=== PATIENT | female | born 1970 | race Caucasian/White ===

== ENCOUNTER 2020-07-31 09:30 | Day surgery (SDC) | payer OTHER, SELFPAY ==
[2020-07-29 11:52] VITALS: BMI 32.3
--- NOTE | 2020-07-30 12:59 | P.CONAN_ITS ---
Documented by User: Nena Barrientos 07/30/20 13:00 HPI - Anesthesia Eval Consult details Narrative: 49yo F for Foot Arthroplasty,first MPJ implant PCP cleared [facility] Past Medical History Medical History Anxiety Anxious depression Fibromyalgia Insomnia Migraines Sleep apnea Social History Social History Smoking Status: Never smoker Use of substances other than those prescribed or required for medical reasons: No Advance Directives: No Advance Directives Information Provided: No Advance Directives on File: No Recently lost weight without trying: No Meds Allergies Allergy/AdvReac Type Severity Reaction Status Date / Time Penicillins Allergy Unknown Verified 07/29/20 11:50 enviromental Allergy Unknown Uncoded 07/29/20 11:50 Home Medications Medication Instructions Recorded Confirmed Type acetaminophen [Tylenol Extra 500 mg PO Q6H PRN 07/29/20 07/29/20 History Strength] amitriptyline 50 mg PO BEDTIME 07/29/20 07/29/20 History fluoxetine 20 mg PO DAILY 07/29/20 07/29/20 History Exam Exam Date and Time: July 30, 2020 1259 Height,Weight and Vital Signs: Height 5 ft 8 in Weight 96.3 kg Assessment and Plan Assessment Anesthesia Assessment: Chart Reviewed Documented by User: Ivana Shine 07/31/20 07:20 [facility] Past Medical History Medical History Anxiety Anxious depression Fibromyalgia Insomnia Migraines Sleep apnea Social History Social History Smoking Status: Never smoker Use of substances other than those prescribed or required for medical reasons: No Advance Directives: No Advance Directives Information Provided: No Advance Directives on File: No Recently lost weight without trying: No Meds Allergies Allergy/AdvReac Type Severity Reaction Status Date / Time Penicillins Allergy Unknown Verified 07/29/20 11:50 enviromental Allergy Unknown Uncoded 07/29/20 11:50 Home Medications Medication Instructions Recorded Confirmed Type acetaminophen [Tylenol Extra 500 mg PO Q6H PRN 07/29/20 07/29/20 History Strength] amitriptyline 50 mg PO BEDTIME 07/29/20 07/29/20 History fluoxetine 20 mg PO DAILY 07/29/20 07/29/20 History Exam Airway Mallampati Class: II TM Dist: >3cm Neck ROM: Full Heart: RRR Lungs: CTA
--- NOTE | 2020-07-30 15:52 | HP_ITS ---
DATE OF SERVICE: 07/31/2020 She is scheduled for a right great toe arthroplasty with Arthrosurface implant. PREOPERATIVE DIAGNOSES: Osteoarthritis right great toe, hallux limitus. PAST MEDICAL HISTORY: Joint implants, anxiety, fibromyalgia. CURRENT MEDICATIONS: Fluoxetine. SURGICAL HISTORY: Knee surgery, heart surgery, ablation in 2010. FAMILY HISTORY: Significant for diabetes, heart disease, hypertension. SOCIAL HISTORY: The patient is a nonsmoker. ALLERGIES: PENICILLIN AND BACTRIM. HOSPITALIZATIONS: Denies. REVIEW OF SYSTEMS: Denies. HISTORY OF PRESENT ILLNESS: This is a 49 yo female who presents to my office complaining of aching, tenderness, and stiffness to the right great toe joint for several years. It has been gradually getting progressively worse. It is painful with any pressure standing or walking. The patient has tried multiple conservative therapies including rest, change in shoes, cortisone injections, intervals, bracing straps and wraps to her right foot without any success. PHYSICAL EXAMINATION: GENERAL: Reveals a pleasant alert well-nourished, well-developed, well-hydrated individual who presents with a proper attention to hygiene and body habitus. She is oriented x3. NEUROLOGICAL EXAM: Reveals intact sensorium. Pain sensation is normal. Vibratory sensation is intact. Pinprick sensation is normal. The patient denies any anesthesia, burning, paresthesias or tingling bilaterally. VASCULAR EXAM: DP and PT pulses are 3/4 bilaterally. Capillary refill is immediate to all digits. Skin temperature, elasticity, and turgor is normal bilaterally. Pigmentation is normal. There is no edema. ORTHOPEDIC EXAM: Reveals muscle strength is 5/5 to all muscle groups in a symmetrical fashion. There is a dorsally, medially prominent 1st metatarsophalangeal joint with pain on palpation. Range of motion of the 1st MPJ is guarded due to discomfort with limited 1st MPJ. Dorsal range of motion, limited, plantar range of motion and pain associated with range of motion throughout range of motion testing of the right foot. DIAGNOSTIC DATA: X-ray exam reveals asymmetrical narrowing of the 1st metatarsophalangeal joint space. There is an exostosis located at the dorsal aspect of the 1st metatarsal head. PLAN: The patient is scheduled for surgery at [facility]. Surgery was discussed in detail with the patient including risks of surgery and not having surgery, the surgical complications, the anesthesia and the usual postoperative course. No guarantees were given. We discussed the patient complications such as but not limited to delayed or nonhealing, excessive scarring, excessive swelling, failure of the procedure, floppy toe infection, nonunion, numbness, chronic pain, recurrence, shortened toe, joint stiffness, failure of the procedure and loss of toe, foot, life, or limb. Alternatives of procedure were also discussed including conservative care. The patient would like to proceed with surgical treatment. The patient will obtain preoperative labs as well as medical clearance for surgery and anesthesia from her primary care physician. The patient will be made aware to stop any and all blood thinners 1 week prior to surgery. The patient is made aware that driving may not be allowed during a portion of the postoperative period. The patient is also made aware not to utilize any smoking tobacco products. Discussed surgical options including a cheilectomy and joint replacement as well as a joint fusion. Discussed risks and benefits of the above-mentioned procedures in detail, and their recovery times. Discussed with the patient that given her x-rays, we will make it intra op decision between a cheilectomy and a joint replacement. The patient consented for both procedures pending damage to the joint cartilage. The mass that was checked prior to writing of the narcotic pain medication. The patient was given Percocet 5/325 mg for breakthrough pain. The patient can also stagger taking Motrin and Tylenol as needed for pain. The patient can be weightbearing as tolerated to the right foot and a surgical shoe postoperatively. PERFECTO Renteria / [id number] ZULAY
[2020-07-31] VITALS (7 sets, daily range): BP systolic 126–142; BP diastolic 85–95; PULSE 97–120; RESP 13–21; TEMP 36.3–36.7; O2SAT 97–100
--- NOTE | 2020-07-31 07:20 | HO.ANESPROP2 ---
[facility] Past Medical History Medical History Anxiety Anxious depression Fibromyalgia Insomnia Migraines Sleep apnea Social History Social History Smoking Status: Never smoker Use of substances other than those prescribed or required for medical reasons: No Advance Directives: No Advance Directives Information Provided: No Advance Directives on File: No Recently lost weight without trying: No Meds Allergies Allergy/AdvReac Type Severity Reaction Status Date / Time Penicillins Allergy Unknown Verified 07/29/20 11:50 enviromental Allergy Unknown Uncoded 07/29/20 11:50 Home Medications Medication Instructions Recorded Confirmed Type acetaminophen [Tylenol Extra 500 mg PO Q6H PRN 07/29/20 07/29/20 History Strength] amitriptyline 50 mg PO BEDTIME 07/29/20 07/29/20 History fluoxetine 20 mg PO DAILY 07/29/20 07/29/20 History Exam Exam Date and Time: July 31, 2020 0720 Height,Weight and Vital Signs: Height 5 ft 8 in Weight 96.3 kg Assessment and Plan Assessment Anesthesia Assessment: Anesthesia Plan Discussed and Chart Reviewed Final Anesthetic Review NPO: Yes ASA Class: II Final Preanesthetic Review: No Changes in Pt Med Stat, Meds/Allgs Chart Reviewed, Consent Obtained/Reviewed and Anes Risks/Benef Reviewed Patient Risk: Low Procedure Risk: Low Anesthetic Plan Anesthetic Plan: MAC: Disposition: Standard PACU
--- NOTE | 2020-07-31 10:21 | PC.NURSE ---
DOCUMENTED ON A DISCONTINUED VANCO ORDER. DOCUMENTATION UNDONE AND CORRECTLY DOCUMENTED ON TODAY'S VANCO
[2020-07-31] MEDS: Lactated Ringers 1,000 ML 100 ML IVCONT (10:25)
--- NOTE | 2020-07-31 11:14 | MHC.SHP ---
Pre-Procedural Eval Section A The patient is an INPATIENT: No Changes since office visit: No Cold of Flu in the past 2 weeks, No New Medical Problems, No Changes in Medication and No Patient answered all questions The History & Physical has been completed within 30 days and I have reviewed it.: Yes Section B Chief Complaint: hallux rigidus,right foot Allergies: Allergies Allergy/AdvReac Type Severity Reaction Status Date / Time Penicillins Allergy Unknown Verified 07/31/20 09:39 enviromental Allergy Unknown Uncoded 07/29/20 11:50 Plan Patient has been examined and remains a candidate for the planned procedure
--- NOTE | 2020-07-31 11:14 | HO.ANESPROP2 ---
[facility] Past Medical History Medical History Anxiety Anxious depression Fibromyalgia History of tachycardia Insomnia Migraines Surgical History Surgical History History of repair of anterior cruciate ligament of right knee Hx of tonsillectomy Social History Social History Smoking Status: Never smoker Use of substances other than those prescribed or required for medical reasons: No Advance Directives: No Advance Directives Information Provided: No Advance Directives on File: No Recently lost weight without trying: No Meds Allergies Allergy/AdvReac Type Severity Reaction Status Date / Time Penicillins Allergy Unknown Verified 07/31/20 09:39 enviromental Allergy Unknown Uncoded 07/29/20 11:50 Home Medications Medication Instructions Recorded Confirmed Type acetaminophen [Tylenol Extra 500 mg PO Q6H PRN 07/29/20 07/31/20 History Strength] amitriptyline 50 mg PO BEDTIME 07/29/20 07/31/20 History fluoxetine 20 mg PO DAILY 07/29/20 07/31/20 History Exam Exam Date and Time: July 31, 2020 1114 Height,Weight and Vital Signs: Height 5 ft 8 in Weight 96.3 kg Last Vital Signs Temp 98.1 F 07/31/20 09:50 Pulse 97 07/31/20 09:50 Resp 16 07/31/20 09:50 BP 129/85 07/31/20 09:50 Pulse Ox 98 07/31/20 09:50 Airway Mallampati Class: II TM Dist: >3cm Neck ROM: Full Heart: RRR Lungs: CTA
--- NOTE | 2020-07-31 11:15 | HO.ANESPROP2 ---
[facility] Past Medical History Medical History Anxiety Anxious depression Fibromyalgia History of tachycardia Insomnia Migraines Surgical History Surgical History History of repair of anterior cruciate ligament of right knee Hx of tonsillectomy Social History Social History Smoking Status: Never smoker Use of substances other than those prescribed or required for medical reasons: No Advance Directives: No Advance Directives Information Provided: No Advance Directives on File: No Recently lost weight without trying: No Meds Allergies Allergy/AdvReac Type Severity Reaction Status Date / Time Penicillins Allergy Unknown Verified 07/31/20 09:39 enviromental Allergy Unknown Uncoded 07/29/20 11:50 Home Medications Medication Instructions Recorded Confirmed Type acetaminophen [Tylenol Extra 500 mg PO Q6H PRN 07/29/20 07/31/20 History Strength] amitriptyline 50 mg PO BEDTIME 07/29/20 07/31/20 History fluoxetine 20 mg PO DAILY 07/29/20 07/31/20 History Exam Exam Date and Time: July 31, 2020 1115 Height,Weight and Vital Signs: Height 5 ft 8 in Weight 96.3 kg Last Vital Signs Temp 98.1 F 07/31/20 09:50 Pulse 97 07/31/20 09:50 Resp 16 07/31/20 09:50 BP 129/85 07/31/20 09:50 Pulse Ox 98 07/31/20 09:50 Assessment and Plan Final Anesthetic Review NPO: Yes ASA Class: II Final Preanesthetic Review: No Changes in Pt Med Stat, Meds/Allgs Chart Reviewed, Consent Obtained/Reviewed and Anes Risks/Benef Reviewed Patient Risk: Low Procedure Risk: Low Anesthetic Plan Anesthetic Plan: MAC: Disposition: Standard PACU
--- NOTE | 2020-07-31 11:23 | FL_ITS ---
EXAMINATION: XR FLUOROSCOPY WITH IMAGES CLINICAL INFORMATION: Right foot implant COMPARISON: None. TECHNIQUE: Fluoroscopy performed by Dr. Joelle Cheung. Fluoroscopy time: 0.1 minutes DAP: 0.005 mGycm2 Images: 2 FINDINGS: There are postsurgical changes first MTP with placement of a implant at the first metatarsal head. Hardware is intact. No dislocation or destructive process. FL/FL guidance in OR IMPRESSION: Status post implant first metatarsal head.
--- NOTE | 2020-07-31 12:30 | PM.OP ---
Brief Operative Note Date of Service: 07/31/20 Pre-op diagnosis: Hallux Limitus right foot Post-op diagnosis: same Procedure: Right hemiarthroplasty with Arthrosurface implant Implants: Arthrosurface hari implant and amniofix Surgeon: Joelle Cheung Anesthesia: GLMA and local House Decorator: Sam Kidd Estimated blood loss (mL): 5 Tourniquet time (min): 43 Pathology: none sent Condition: stable Disposition: PACU
--- NOTE | 2020-07-31 14:28 | HO.POSTANES ---
Post Anesthesia Evaluation Post Anesthesia Evaluation Vital Signs: Vital Signs Temp Pulse Resp BP Pulse Ox 07/31/20 13:20 97.3 F 105 H 21 H 142/93 H 100 07/31/20 13:05 110 H 15 133/95 H 99 07/31/20 12:50 111 H 13 139/94 H 100 07/31/20 12:45 120 H 18 126/91 H 100 07/31/20 12:40 119 H 19 140/87 H 100 07/31/20 12:35 97.6 F 117 H 16 138/95 H 97 07/31/20 09:50 98.1 F 97 16 129/85 98 Anesthesia: General (tiva) Mental Status: Awake Pain Control: Satisfactory Nausea/Vomiting: None Hydration: Adequate Anesthesia-Related Issues: No Anes. Related Issues
--- NOTE | 2020-07-31 17:28 | OP_ITS ---
[facility] OPERATIVE REPORT PATIENT NAME: CLARISSE Duval DATE OF : 1970 LOCATION: [place] DATE OF SERVICE: 07/31/2020 [facility] #: [id number] PCP: OPERATIVE REPORT Page 1 SURGEON: Joelle Cheung DPM PREOPERATIVE DIAGNOSIS: Hallux limitus, right foot. POSTOPERATIVE DIAGNOSIS: Hallux limitus, right foot. PROCEDURE PERFORMED: Right foot hemiarthroplasty with Arthrosurface implant. ESTIMATED BLOOD LOSS: Less than 5 mL. COMPLICATIONS: None. ANESTHESIA: LMA with local consisting preoperatively of 12 mL of 0.5% Marcaine plain and 2% lidocaine plain, and postoperatively of 0.5% Marcaine plain and 1 mL of dexamethasone. ASSISTANTS: Sam Kidd DPM SPECIMENS: Bone HEMOSTASIS: Pneumatic ankle tourniquet set at 225 mmHg for 43 minutes. INDICATIONS FOR SURGERY: The patient had painful bone spurs and limited range of motion to the right great toe joint that has been painful for some time. The patient has failed conservative therapy and wished to proceed with surgical intervention. The above-mentioned surgery was discussed in great detail with the patient including risks, benefits, and possible complications. No guarantees were given, and written and oral informed consent was obtained. PROCEDURE IN DETAIL: The patient was brought into the operating room, placed on the operating table in a supine position. Following IV sedation, the above-mentioned local anesthetic was injected about the right foot in a regional field block fashion. The right foot was then scrubbed, prepped, and draped in a sterile manner. The patient was given vancomycin prior to the start of anesthesia. The right foot was exsanguinated and pneumatic ankle tourniquet was inflated to 225 mmHg. Attention was directed to the right great toe joint where incision was made overlying the 1st MPJ. The incision was deepened down through subcutaneous tissue. Great care being taken to protect and retract all vital, neural, and vascular structures, and all bleeders were cauterized as necessary. A capsulotomy was made medial and parallel to the extensor tendon over the 1st metatarsophalangeal joint, freeing the head of the 1st metatarsal and base of the proximal phalanx from its soft tissue surrounding. Upon incision, there was noted to be significant dorsal spurring of the 1st metatarsal head. Upon examination of the 1st metatarsal head, there was about 50% cartilaginous defect in degeneration of the head of the 1st metatarsal. 90% of the proximal phalanx cartilaginous surfaces were intact. It was decided to proceed with Arthrosurface implant due to the significant degeneration of the 1st metatarsal head. A guidewire was placed in the central aspect of the 1st metatarsal head, was checked under C-arm fluoroscopy. Next, the 1st metatarsal head was drilled and tapped with decompression of 2 mm. After the tap, the post of the implant was inserted. The head of the 1st metatarsal was then reamed. The guidewire was removed and the dorsal aspect of the 1st metatarsal head was reamed as well. Any overhanging redundant bone was rongeured smooth. A trial implant was inserted and was noted to be excellent size. The trial implant was removed. Any remaining prominences over the 1st metatarsal head or base of the proximal phalanx was rongeured. The wound was irrigated with copious amounts of normal sterile saline. A 2.5 mm x 3.5 mm Arthrosurface hari-implant was then tapped into the taper post measuring 9.5 mm. The capsular structures reapproximated with 3-0 Vicryl in a continuous running fashion. The piece of AmnioFix was placed extracapsular and the skin was reapproximated with 4-0 Monocryl in a continuous running fashion and an interrupted suture technique of 4-0 nylon. A postoperative injection of 5 mL of 0.5% Marcaine plain and 1 mL of dexamethasone was administered to the right foot. The right foot was then dressed with Steri-Strips, Betadine soaked gauze, 4x4s, fluffs, Kerlix, cast padding, and an Anshul bandage. The pneumatic ankle tourniquet was deflated and prompt capillary refill was noted to all 5 digits. The patient tolerated the procedure and anesthesia well. The patient was transferred to the recovery room with vital signs stable and vascular status at preoperative levels. Following a period of postoperative recovery, the patient will be discharged home with written and oral postoperative instructions. The patient can be weightbearing as tolerated in a surgical shoe to the right foot. She was given postop pain medication in my office. The patient to perform range of motion of the 1st metatarsophalangeal joint several times a day. She can ice and elevate the foot. The patient had a cooling cuff that was integrated into her postoperative dressings and the instructions for her to use have been given to her. Joelle Cheung DPM LP/SOM / [id number] MTDD
== END 2020-07-31 14:48 ==
LOC: HO.SSS 09:30
PROVIDERS: PCP Nurse Practitioner Family; Visit Provider Podiatrist
PROC: (CPT 28899; principal; 2020-07-31 11:00)
DX: M20.21 Hallux rigidus, right foot (principal); M19.071 Primary osteoarthritis, right ankle and foot; Z88.0 Allergy status to penicillin; F41.8 Other specified anxiety disorders; Z79.899 Other long term (current) drug therapy
CPT/HCPCS: 28291; C1713; C1776; J1100; J2250; J3010; J3370; J3590; Q4186